=== PATIENT | female | born 1935 | race Caucasian/White ===

== ENCOUNTER 2018-11-15 07:33 | Observation (INO) | payer MEDICARE, OTHER ==
[~2018-11-15] VITALS: Ht 152.4 cm; Wt 70.1 kg
[2018-11-15] MEDS ORDERED: morphine 4 MG/ML VIAL IV STA (07:42)
[2018-11-15] MEDS ORDERED: ONDANSETRON 4 MG INJ IV STA (07:42)
[2018-11-15] MEDS ORDERED: SOD CHLORIDE 0.9% 1,000 ML IV STA (07:42)
--- NOTE | 2018-11-15 07:53 | ERD ---
ER Documentation Chief Complaint Chief Complaint HEADACHE NON TRAUMATIC L SIDE, NO NEURO DEF. NAUSEA NO VOMITING. HPI This is a very pleasant 83-year-old female with past medical history of hypertension. The patient for the past 24 hours has complained of a unilateral pulsating left-sided headache. There is been no blunt or penetrating head trauma. She states this is not the worst headache of her life. She denies any neck pain. She said no fevers no shaking no chills. She is felt nauseous but has not experienced any emesis. She took her blood pressure this morning and it was elevated with a systolic of greater than 190. She denies any chest pain or pressure. She has no shortness of breath at rest or exertion. She states she felt her vision was slightly blurry upon awakening this morning roughly an hour prior to arrival but indicated this has resolved. She has a vamp presser who helps her to attend her activities of daily living. He indicated that he brought her to the emergency department she started to complain of dizziness just prior to arrival. The patient stated she felt as though the room was spinning. This was worse when she went to ambulate therefore she lied supine to improve her symptoms. Her caregiver states however that the patient felt as though she was going to pass out every time she stood up and therefore he brought her to the emergency department to be further evaluated as she is been unable to ambulate for several hours due to her symptoms. ROS All systems reviewed and are negative except as per history of present illness. Medications Home Meds Reported Medications Evolocumab (Repatha Syringe) 140 Mg/1 Ml Syringe, 140 MG SQ Q14D 11/15/18 Icosapent Ethyl (VASCEPA) 1 Gm Capsule, 1 GM PO QID, CAP 11/15/18 Amlodipine Besylate* (Amlodipine Besylate*) 10 Mg Tablet, 10 MG PO DAILY, #30 TAB 11/15/18 Memantine* (Namenda* XR) 28 Mg Cap.spr.24, 28 MG PO DAILY, #30 TAB 11/15/18 Dexlansoprazole (Dexilant) 60 Mg Cap.drSabihamp, 60 MG PO DAILY, #30 CAP 11/15/18 Rosuvastatin Calcium* (Crestor*) 10 Mg Tablet, 10 MG PO QHS, #30 TAB 11/15/18 Ezetimibe* (Zetia*) 10 Mg Tablet, 10 MG PO DAILY, TAB 6/25/19 Metoprolol Tartrate* (Lopressor*) 25 Mg Tab, 25 MG PO BID, #60 TAB 11/15/18 Salmeterol Xinaf-Fluticasone* (Advair*) 500/50 Diskus Inhaler, 1 INH INHALATION BID, #1 INHALER 11/15/18 Gabapentin* (Gabapentin*) 600 Mg Tablet, 600 MG PO DAILY, #60 TAB 11/15/18 Metformin Hcl* (Metformin Hcl*) 1,000 Mg Tablet, 1000 MG PO NEEDED, #30 TAB 11/15/18 Meclizine Hcl* (Antivert*) 12.5 Mg Tab, 12.5 MG PO Q8H, #30 TAB 11/15/18 Montelukast Sodium* (Montelukast Sodium*) 10 Mg Tablet, 10 MG PO QHS, #30 TAB 11/15/18 Clonidine Hcl* (Clonidine Hcl*) 0.1 Mg Tab, 0.1 MG PO Q8H PRN for HTN, TAB 11/15/18 Allergies Allergies: Coded Allergies: No Known Allergy (Verified , 11/15/18) PMhx/Soc History of Surgery: Yes (EYE SURGERY) Anesthesia Reaction: No Hx Neurological Disorder: No Hx Respiratory Disorders: No Hx Cardiac Disorders: Yes (HTN) Hx Psychiatric Problems: No Hx Miscellaneous Medical Probl: No Hx Alcohol Use: No Hx Substance Use: No Hx Tobacco Use: No Physical Exam Vitals Vital Signs Date Temp Pulse Resp B/P (MAP) Pulse Ox O2 O2 Flow FiO2 Time Delivery Rate 11/15/18 62 22 177/59 92 Room Air 10:12 (98) 11/15/18 61 18 171/44 97 Room Air 08:01 (86) 11/15/18 98.0 72 18 190/79 98 07:40 (116) Physical Exam Constitutional:Well-developed. Well-nourished. HEENT:Normocephalic. Atraumatic. Corneal clouding of the left pupil. Right pupil was reactive to light and 2 mm. Moist mucous membranes. Funduscopy exam shows sharp optic disks and venous pulsations were present Neck: No nuchal rigidity. No lymphadenopathy. No posterior cervical spine tenderness or step-offs. Respiratory: Not using accessory muscles of respiration.Lungs were clear to auscultation bilaterally. No rhonchi. No rales. No wheezing. Cardiovascular: Regular rate regular rhythm.No murmurs. No rubs were appreciated.S1, S2 normal. Distal pulses are palpable 2+ bilaterally. GI: Abdomen was soft. Nontender. Non Distended. No pulsatile abdominal masses or bruits. No rebound. No guarding. Bowel sounds were present and normal. Muscle skeletal: Full range of motion of both the upper and lower extremities bilaterally.Normal muscle tone.No assymetrical calf tenderness or swelling. Skin: No petechia, no purpura. No lesions on the palms or the soles of the feet. No maculopapular rash. NEURO: Patient was alert, awake, orientated x3.No facial droop. Gait not observed as patient felt too weak to ambulate.Speech had regular rate and rhythm. No focal neurological deficits. Peripheral fatigable nystagmus to the right sided gaze Result Diagram: 11/15/18 0800 11/15/18 0800 Results 24 hrs Laboratory Tests Test 11/15/18 08:00 White Blood Count 12.7 10^3/ul Red Blood Count 4.95 10^6/ul Hemoglobin 12.3 g/dl Hematocrit 39.9 % Mean Corpuscular Volume 80.6 fl Mean Corpuscular Hemoglobin 24.8 pg Mean Corpuscular Hemoglobin Concent 30.8 g/dl Red Cell Distribution Width 14.6 % Platelet Count 360 10^3/UL Mean Platelet Volume 10.4 fl Immature Granulocytes % 0.700 % Neutrophils % 76.4 % Lymphocytes % 15.7 % Monocytes % 5.4 % Eosinophils % 1.1 % Basophils % 0.7 % Nucleated Red Blood Cells % 0.0 /100WBC Immature Granulocytes # 0.090 10^3/ul Neutrophils # 9.7 10^3/ul Lymphocytes # 2.0 10^3/ul Monocytes # 0.7 10^3/ul Eosinophils # 0.1 10^3/ul Basophils # 0.1 10^3/ul Nucleated Red Blood Cells # 0.0 10^3/ul Prothrombin Time 13.9 Sec Prothrombin Time Ratio 1.1 INR International Normalized Ratio 1.06 Activated Partial Thromboplast Time 29.2 Sec Sodium Level 142 mmol/L Potassium Level 4.6 mmol/L Chloride Level 102 mmol/L Carbon Dioxide Level 27 mmol/L Anion Gap 13 Blood Urea Nitrogen 15 mg/dl Creatinine 0.85 mg/dl Est Glomerular Filtrat Rate mL/min mL/min Glucose Level 167 mg/dl Calcium Level 9.2 mg/dl Total Bilirubin 0.8 mg/dl Direct Bilirubin 0.00 mg/dl Indirect Bilirubin 0.8 mg/dl Aspartate Amino Transf (AST/SGOT) 19 IU/L Alanine Aminotransferase (ALT/SGPT) 18 IU/L Alkaline Phosphatase 115 IU/L Troponin I < 0.012 ng/ml B-Type Natriuretic Peptide 847 PG/ML Total Protein 7.2 g/dl Albumin 4.1 g/dl Globulin 3.10 g/dl Albumin/Globulin Ratio 1.32 Lipase 55 U/L Current Medications Medications Dose Sig/Tremaine Start Time Status Last (Trade) Ordered Route PRN Stop Time Admin Dose Reason Admin Sodium 1,000 ml @ Q1H STAT 11/15/18 DC 11/15/18 Chloride 1,000 mls/hr IV 07:42 08:00 11/15/18 08:41 Ondansetron 4 mg ONCE STAT 11/15/18 DC 11/15/18 HCl (Zofran IV 07:42 08:00 Inj) 11/15/18 07:45 Morphine 4 mg ONCE STAT 11/15/18 DC 11/15/18 Sulfate IV 07:42 08:00 (morphine) 11/15/18 07:45 Meclizine 25 mg ONCE ONCE 11/15/18 DC 11/15/18 HCl PO 08:00 08:11 (Antivert) 11/15/18 08:01 Diazepam 2.5 mg ONCE ONCE 11/15/18 DC 11/15/18 (Valium) IV 10:30 10:18 11/15/18 10:31 Clonidine 0.1 mg ONCE ONCE 11/15/18 DC (Catapres) PO 11:30 11/15/18 11:31 IV Flush 3 ml PER 11/15/18 UNV (NS 3 ml) PROTOCOL IV 12:30 Enoxaparin 40 mg DAILY SC 11/16/18 UNV Sodium 09:00 (Lovenox) Ondansetron 4 mg Q4H PRN 11/15/18 UNV HCl (Zofran IV NAUSEA 12:30 Inj) AND/OR VOMITING Ondansetron 4 mg ER BRIDGE 11/15/18 HCl (Zofran PRN IV 12:30 Inj) NAUSEA/VOMITI 11/16/18 12:29 NG 650 mg ER BRIDGE 11/15/18 Acetaminophen PRN PO 12:30 (Tylenol .MILD PAIN 11/16/18 12:29 Tab) 1-3 OR TEMP Procedures/MDM The patient presented to the emergency department with an acute single headache that presented within hours of onset my differential diagnosis included but was not limited to meningitis, SAH, intracerebral hemorrhage, hypertensive encephalopathy, cranial artery dissection, cerebral venous sinus thrombosis, traumatic, acute sinusitis. The patient has no ocular symptoms to suggest temporal neuritis, acute narrow-angle glaucoma or pituitary apoplexy. The patient did not appear to have a toxic or metabolic etiology such as fever, hypoglycemia, high-altitude disease or carbon monoxide poisoning. This was not the patients worse headache of their life. The patient had a comp lete neurologic and fundoscopic exam performed by myself that was normal with no focal neurological deficits or retinal hemorrhage. The patient stated this headache was not severe or distinct from other headaches and the history with the physical exam findings did not likely suggest SAH. Therefore, I did not feel it was clinically necessary to perform a lumbar puncture and CSF analysis. A CT scan ordered by myself and reviewed by the radiologist indicate the followin. The intracranial contents are without significant interval change compared to the patient's prior CT scan from January 01, 2012. 2. Focal left periventricular calcific density without significant interval change compared to the patient's prior study from 2011. This may represent dystrophic calcification versus small vascular malformation such as a developmental venous anomaly. Further evaluation with MRI imaging with contrast would be more sensitive. 3. [id number] diffuse atrophy. 4. Microangiopathic ischemic changes. 5. Vascular calcifications. 6. Left-sided phthisis bulbi. 7. Mild mucosal thickening ethmoid air cells. I obtained a 12-lead EKG tracing to rule out for atypical myocardial infarction: 12 Lead EKG tracing ordered and reviewed by myself showed: Normal sinus rhythm of 62 bpm and no arrhythmia. IL interval normal. QRS duration normal. No ST segment elevation No ST segment depression. No changes consistent with acute ischemia. I Obtained a chest radiograph and there is no evidence of pneumonia and my reason for obtaining the chest radiograph is nursing staff approached me and indicated that the patient was hypoxic on room air. She did not appear to be in any respiratory distress. She had no risk factors for pulmonary embolism. The patient required supplemental oxygen with 2 L nasal cannula. The patient received Zofran and Antivert and Valium without any improvement of her vertigo. Given that her symptoms persisted and she was unable to ambulate I did feel she required admission for observation. She will go to the telemetry service. Patient will be placed in the telemetry service that she presented to the emergency department with hypertension. Patient had no signs of endorgan damage to suggest hypertensive emergency. She did receive clonidine in the [facility] department which improved her blood pressure. Departure Diagnosis: Primary Impression: Near syncope Additional Impressions: Vertigo Accelerated hypertension Condition: Serious DARYL NEFF MD Nov 15, 2018 07:53
[2018-11-15] MEDS ORDERED: MECLIZINE 12.5 MG TAB PO ONE (08:00)
[2018-11-15] MEDS ORDERED: DIAZEPAM 5 MG/ML SYG IV ONE (10:30)
[2018-11-15] MEDS ORDERED: CLON-379 PO (10:57)
[2018-11-15] MEDS ORDERED: MONT10TA24 PO (10:58)
[2018-11-15] MEDS ORDERED: MECL12.574 PO (10:58)
[2018-11-15] MEDS ORDERED: METF100010 PO (10:59)
[2018-11-15] MEDS ORDERED: ADV50050 INHALATION (10:59)
[2018-11-15] MEDS ORDERED: GABA-526 PO (10:59)
[2018-11-15] MEDS ORDERED: EZET10TA31 PO (11:00)
[2018-11-15] MEDS ORDERED: METO-448 PO (11:00)
[2018-11-15] MEDS ORDERED: RSV10T PO (11:00)
[2018-11-15] MEDS ORDERED: MEMA28CA PO (11:01)
[2018-11-15] MEDS ORDERED: DEXL60CA2 PO (11:01)
[2018-11-15] MEDS ORDERED: AMLO-147 PO (11:02)
[2018-11-15] MEDS ORDERED: ICOS1CAP PO (11:03)
[2018-11-15] MEDS ORDERED: EVOL140S SQ (11:04)
--- NOTE | 2018-11-15 12:06 | HP ---
Date/Time of Note Date/Time of Note DATE: 11/15/18 TIME: 12:06 Assessment/Plan VTE Prophylaxis Pharmacological prophylaxis: LMWH Lines/Catheters IV C[facility] Type [facility]from [facility]): Saline Lock Assessment/Plan Hospital Course 83-year-old female with comorbidities including hypertension, diabetes mellitus, and dyslipidemia who came to the emergency room with complaint of left-sided headache and vertigo who will be admitted to inpatient setting for further treatment and evaluation. 1. Vertigo. Etiology unclear. Brain CT scan negative for any acute stroke. Obtain brain MRI. Telemetry monitoring. 2D echocardiogram to evaluate the left ventricular ejection fraction. Trial of meclizine. PT evaluation. 2. Hypertension. Resume antihypertensives. 3. Dyslipidemia. Resume antilipemics. Obtain fasting lipid panel. 4. Diabetes mellitus type 2. Obtain hemoglobin A1c to evaluate the blood glucose control over the past 3 months. Start the patient on sliding scale insulin along with basal insulin. 5. Leukocytosis. Most probably reactive in nature. The patient remains afebrile. Monitor. Plan: The patient will be admitted to inpatient telemetry floor. The patient will be started on a carbohydrate controlled diet. The patient will be started on DVT prophylaxis. The patient will remain a full code. Activities will be as tolerated with assist. The rest of the patient's management will be based on the clinical course and the results of diagnostic studies. Based on the patient's clinical presentation, she most probably requires at least 1 midnight's stay for further management and evaluation of her clinical presentation. The patient was seen in collaboration with Dr. Larkin. Result Diagram: 11/15/18 0800 11/15/18 0800 Results 24hrs Laboratory Tests Test 11/15/18 08:00 White Blood Count 12.7 H Red Blood Count 4.95 Hemoglobin 12.3 Hematocrit 39.9 Mean Corpuscular Volume 80.6 L Mean Corpuscular Hemoglobin 24.8 L Mean Corpuscular Hemoglobin Concent 30.8 L Red Cell Distribution Width 14.6 H Platelet Count 360 Mean Platelet Volume 10.4 Immature Granulocytes % 0.700 H Neutrophils % 76.4 Lymphocytes % 15.7 Monocytes % 5.4 Eosinophils % 1.1 Basophils % 0.7 Nucleated Red Blood Cells % 0.0 Immature Granulocytes # 0.090 H Neutrophils # 9.7 H Lymphocytes # 2.0 Monocytes # 0.7 Eosinophils # 0.1 Basophils # 0.1 Nucleated Red Blood Cells # 0.0 Prothrombin Time 13.9 Prothrombin Time Ratio 1.1 INR International Normalized Ratio 1.06 Activated Partial Thromboplast Time 29.2 Sodium Level 142 Potassium Level 4.6 Chloride Level 102 Carbon Dioxide Level 27 Anion Gap 13 Blood Urea Nitrogen 15 Creatinine 0.85 Est Glomerular Filtrat Rate mL/min Glucose Level 167 Calcium Level 9.2 Total Bilirubin 0.8 Direct Bilirubin 0.00 Indirect Bilirubin 0.8 Aspartate Amino Transf (AST/SGOT) 19 Alanine Aminotransferase (ALT/SGPT) 18 Alkaline Phosphatase 115 Troponin I < 0.012 B-Type Natriuretic Peptide 847 H Total Protein 7.2 Albumin 4.1 Globulin 3.10 Albumin/Globulin Ratio 1.32 Lipase 55 HPI/ROS Admit Date/Time Admit Date/Time Hx of Present Illness Reason for admission: Headache, vertigo. This is a 83-year-old female with a past medical history of hypertension, diabetes mellitus, dyslipidemia, and left-sided blindness who came to the emergency room with multiple complaints. The patient was complaining of left frontal headache. The patient denied any trauma. She denied any neck pain. She denied any fevers or chills. The patient was also complaining of nausea, but no emesis. The patient was also complaining of spinning sensation of the room. The patient verbalized that the spinning sensation was worse when ambulating. The patient denied any chest pain. In the emergency room, the patient's brain CT scan was negative for any acute findings. Her blood pressure was noticed to be elevated (190/79). She was treated with diazepam 2.5 mg IV push along with clonidine, Zofran, and meclizine. ROS Constitutional: nausea Eyes: no complaints ENT: no complaints Respiratory: no complaints Cardiovascular: no complaints Gastrointestinal: nausea Genitourinary: no complaints Musculoskeletal: no complaints Skin: no complaints Neurologic: dizziness Endocrine: no complaints Lymphatic: no complaints Psychological: no complaints Immunologic: no complaints PMH/Family/Social Past Medical History 1. Hypertension. 2. Diabetes mellitus. 3. Dyslipidemia. 4. Left eye blindness. Coded Allergies: No Known Allergy (Verified , 11/15/18) Past Surgical History Past Surgical Hx: no surgical history Social History The patient lives at home. Alcohol Use: none Smoking Status: Never smoker Drug Use: none Exam/Review of Systems Vital Signs Vitals Vital Signs Date Temp Pulse Resp B/P (MAP) Pulse Ox O2 O2 Flow FiO2 Time Delivery Rate 11/15/18 62 22 177/59 92 Room Air 10:12 (98) 11/15/18 98.0 07:40 Exam Exam General: Adequately build 83 year-old female lying in bed in no apparent distress. HEENT: Normocephalic, atraumatic. Eyes: Anicteric sclerae, conjunctivae clear. Left eye mechanical device. ENT: Nasal septum midline, oral mucosa moist. Neck supple, no JVD noticed. Respiratory: Bilaterally clear breath sounds. No use of accessory muscles of respiration. No adventitious breath sounds. Cardiovascular: S1, S2 heard. Grade 2/6 GAYLE. Abdomen: Soft, nontender, and nondistended. Bowel sounds positive in all 4 quadrants. Genitourinary: Deferred. Extremities: No cyanosis, no clubbing, no edema. Peripheral pulses palpable. Neurologic: The patient is awake, alert, and oriented. Skin: Normal skin turgor. No skin rashes. Additional Comments Brain CT IMPRESSION: 1. The intracranial contents are without significant interval change compared to the patient's prior CT scan from January 01, 2012. 2. Focal left periventricular calcific density without significant interval change compared to the patient's prior study from 2011. This may represent dystrophic calcification versus small vascular malformation such as a developmental venous anomaly. Further evaluation with MRI imaging with contrast would be more sensitive. 3. [id number] diffuse atrophy. 4. Microangiopathic ischemic changes. 5. Vascular calcifications. 6. Left-sided phthisis bulbi. 7. Mild mucosal thickening ethmoid air cells. LINDA CAGLE NP Nov 15, 2018 12:06
[2018-11-15] MEDS ORDERED: ACETAMINOPHEN 325 MG TAB PO PRN (12:30)
[2018-11-15] MEDS ORDERED: ONDANSETRON 4 MG INJ IV PRN ×2 (12:30)
[2018-11-15] MEDS ORDERED: NACL 0.9% 3 ML SYG IV SCH (12:30)
[2018-11-15] MEDS ORDERED: GLUCOSE GEL 15 GRAM TUBE PO PRN ×2 (13:30)
[2018-11-15] MEDS ORDERED: DEXTROSE 50% 50 ML SYRINGE IV PRN ×2 (13:30)
[2018-11-15] MEDS ORDERED: GLUCOSE GEL 15 GRAM TUBE BUCCAL PRN (13:30)
[2018-11-15] MEDS ORDERED: GLUCAGON 1 MG INJ IM PRN (13:30)
[2018-11-15] MEDS: INSULIN ASPART [NOVOLOG] 3 ML PEN SC SCH ×2 (18:00→22:49)
[2018-11-15] MEDS ORDERED: INSULIN GLARGINE [LANTus] (100 UNITS/ML) SYG SC SCH (20:00)
[2018-11-15] MEDS: MECLIZINE 12.5 MG TAB PO SCH ×4 (20:50→22:55)
[2018-11-15] MEDS ORDERED: MONTELUKAST 10 MG TAB PO SCH (21:00)
[2018-11-15 21:01] VITALS: PULSE 60
[2018-11-15 21:23] VITALS: BP 150/64; PULSE 62; RESP 20
[2018-11-15 22:36] VITALS: Ht 152.4 cm; Wt 70.1 kg
[2018-11-15] MEDS: METOPROLOL 25 MG TAB PO SCH (22:42)
[2018-11-16] VITALS (8 sets, daily range): BP systolic 151–158; BP diastolic 67–70; PULSE 53–66; RESP 18
[2018-11-16] MEDS: MECLIZINE 12.5 MG TAB PO SCH ×2 (06:28→13:07)
[2018-11-16] MEDS: INSULIN ASPART [NOVOLOG] 3 ML PEN SC SCH ×2 (07:50→11:50)
[2018-11-16] MEDS ORDERED: ENOXAPARIN 40 MG/0.4 ML SYG SC SCH (09:00)
[2018-11-16] MEDS ORDERED: AMLODIPINE 10 MG TAB PO SCH (09:00)
[2018-11-16] MEDS ORDERED: EZETIMIBE 10 MG TAB PO SCH (09:00)
[2018-11-16] MEDS ORDERED: GABAPENTIN 300 MG CAP PO SCH (09:00)
[2018-11-16] MEDS: METOPROLOL 25 MG TAB PO SCH (09:24)
--- NOTE | 2018-11-16 14:21 | PDOCDIS ---
Discharge Instructions CONDITION [id number] Patient Condition: [id number] Stable FOLLOW UP/APPOINTMENTS Follow-up Plan Follow-up with your primary care physician in 1 week. OTHER ORDERS: Other Orders: 1. Resume home medications. 2. Resume activities as tolerated. 3. Follow-up with your primary care physician in 1 week. 4. Follow a low-cholesterol, low carbohydrate diet. 5. Please go to the nearest emergency room if you have any focal weakness, sudden onset of speech disturbances, or any other unusual signs/symptoms. LINDA CAGLE NP Nov 16, 2018 14:21
--- NOTE | 2018-11-16 14:28 | DS ---
Date/Time of Note Date/Time of Note DATE: 11/16/18 TIME: 14:24 Discharge Summary Admission/Discharge Info Admit Date/Time Nov 15, 2018 at 12:09 Discharge Date/Time Discharge Diagnosis 1. Vertigo. 2. Hypertension. 3. Dyslipidemia. 4. Diabetes mellitus type 2. Hemoglobin A1C 6.3. 5. COPD. 6. Chronic left eye blindness. Patient Condition: Stable Procedures Brain MRI IMPRESSION: 1. No evidence of acute intracranial pathology. 2. Mild to moderate diffuse volume loss with moderate microvascular ischemic disease in the periventricular and deep white matter. 3. Small, 4 mm, hypointense lesion in the left frontal deep white matter with considerable susceptibility artifact and an associated prominent vessel. 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 While better appreciated on the current study, this is likely unchanged. Brain CT IMPRESSION: 1. The intracranial contents are without significant interval change compared to the patient's prior CT scan from January 01, 2012. 2. Focal left periventricular calcific density without significant interval change compared to the patient's prior study from 2011. This may represent dy strophic calcification versus small vascular malformation such as a developmental venous anomaly. Further evaluation with MRI imaging with contrast would be more sensitive. 3. Cdhi-id-aoyhqyij diffuse atrophy. 4. Microangiopathic ischemic changes. 5. Vascular calcifications. 6. Left-sided phthisis bulbi. 7. Mild mucosal thickening ethmoid air cells. Hx of Present Illness Reason for admission: Headache, vertigo. This is a 83-year-old female with a past medical history of hypertension, diabetes mellitus, dyslipidemia, and left-sided blindness who came to the emergency room with multiple complaints. The patient was complaining of left frontal headache. The patient denied any trauma. She denied any neck pain. She denied any fevers or chills. The patient was also complaining of nausea, but no emesis. The patient was also complaining of spinning sensation of the room. The patient verbalized that the spinning sensation was worse when ambulating. The patient denied any chest pain. In the emergency room, the patient's brain CT scan was negative for any acute findings. Her blood pressure was noticed to be elevated (190/79). She was treated with diazepam 2.5 mg IV push along with clonidine, Zofran, and meclizine. Hospital Course The patient was admitted to inpatient setting. Etiology of the patient's clinical presentation was extensively evaluated. The patient's brain CT scan was negative for any acute findings. The patient's brain MRI was also negative for any acute findings. The patient was maintained on meclizine with improved symptoms. The patient was evaluated by physical therapy and physical therapy recommended home health with home physical therapy for home safety and home physical therapy evaluation. The patient's symptomatology has largely resolved. Therefore, the patient will be discharged home, to be followed up with outpatie nt physical therapy. The patient lives in a [facility] with 24-hour supervision and has a daily caregiver The patient's chronic problems include hypertension. The patient was maintained on antihypertensives. The patient was maintained on antilipemics for her underlying dyslipidemia. The patient's fasting lipid panel was not satisfactory. The patient has underlying diabetes mellitus type 2. The patient was maintained on sliding scale insulin with basal insulin. However, the patient refused to take insulin during the hospital course. The patient's hemoglobin A1c was found to be 6.3. The patient will be resumed on metformin. The patient had minimal leukocytosis on the day of admission. However, this resolved on the next day. The patient did not have any evidence of any infectious process. The patient has a history of COPD. The patient was maintained on leukotriene inhibitors. The patient did not have any evidence of any exacerbation of underlying COPD. Discharge Instructions 1. Resume home medications. 2. Resume activities as tolerated. 3. Follow-up with your primary care physician in 1 week. 4. Follow a low-cholesterol, low carbohydrate diet. 5. Please go to the nearest emergency room if you have any focal weakness, sudden onset of speech disturbances, or any other unusual signs/symptoms. The patient's caregiver Stu verbalized understanding of the discharge instructions. The patient was seen in collaboration with Dr. Larkin. Home Meds Reported Medications Evolocumab (Repatha Syringe) 140 Mg/1 Ml Syringe, 140 MG SQ Q14D 11/15/18 Icosapent Ethyl (VASCEPA) 1 Gm Capsule, 1 GM PO QID, CAP 11/15/18 Amlodipine Besylate* (Amlodipine Besylate*) 10 Mg Tablet, 10 MG PO DAILY, #30 TAB 11/15/18 Memantine* (Namenda* XR) 28 Mg Cap.spr.24, 28 MG PO DAILY, #30 TAB 11/15/18 Dexlansoprazole (Dexilant) 60 Mg Sacha., 60 MG PO DAILY, #30 CAP 11/15/18 Rosuvastatin Calcium* (Crestor*) 10 Mg Tablet, 10 MG PO QHS, #30 TAB 11/15/18 Ezetimibe* (Zetia*) 10 Mg Tablet, 10 MG PO DAILY, TAB 11/15/18 Metoprolol Tartrate* (Lopressor*) 25 Mg Tab, 25 MG PO BID, #60 TAB 11/15/18 Salmeterol Xinaf-Fluticasone* (Advair*) 500/50 Diskus Inhaler, 1 INH INHALATION BID, #1 INHALER 11/15/18 Gabapentin* (Gabapentin*) 600 Mg Tablet, 600 MG PO DAILY, #60 TAB 11/15/18 Metformin Hcl* (Metformin Hcl*) 1,000 Mg Tablet, 1000 MG PO NEEDED, #30 TAB 11/15/18 Meclizine Hcl* (Antivert*) 12.5 Mg Tab, 12.5 MG PO Q8H, #30 TAB 11/15/18 Montelukast Sodium* (Montelukast Sodium*) 10 Mg Tablet, 10 MG PO QHS, #30 TAB 11/15/18 Clonidine Hcl* (Clonidine Hcl*) 0.1 Mg Tab, 0.1 MG PO Q8H PRN for HTN, TAB 11/15/18 Follow-up Plan Follow-up with your primary care physician in 1 week. Primary Care Provider Not On Staff Doctor Time spent on discharge: > 30 minutes Pending Labs Laboratory Tests Test 11/15/18 22:45 11/15/18 23:07 11/16/18 06:07 11/16/18 07:48 Bedside 154 131 Glucose mg/dL (70-220) mg/dL (70-220) Urine Color YELLOW (YELLOW ) Urine Clarity CLOUDY (CLEAR) Urine pH 5.0 (5.0-9.0) Urine Specific 1.012 (1.003-1 Majestic .030) Urine Ketones NEGATIVE mg/dL (NEGATIV E) Urine Nitrite POSITIVE mg/dL (NEGATIV E) Urine NEGATIVE Bilirubin mg/dL (NEGATIV E) Urine NEGATIVE Urobilinogen mg/dL (NEGATIV E) Urine Leukocyte 3+ Esterase Erich/ul (NEGATI VE) Urine 4 /HPF (0-5) Microscopic RBC Urine 71 /HPF (0-5) Microscopic WBC Urine Squamous FEW /HPF (FEW) Epithelial Cell s Urine Bacteria FEW /HPF (NONE SEEN) Urine NEGATIVE Hemoglobin mg/dL (NEGATIV E) Urine Glucose NEGATIVE mg/dL (NEGATIV E) Urine Total NEGATIVE Protein mg/dl (NEGATIV E) Urine Opiates Positive (NEGA Screen TIVE) Urine Negative (NEGA Barbiturates TIVE) Urine Negative (NEGA Amphetamines TIVE) Screen Urine Negative (NEGA Benzodiazepines TIVE) Screen Urine Cocaine Negative (NEGA Screen TIVE) Urine Negative (NEGA Cannabinoids TIVE) White Blood 10.4 Count 10^3/ul (4.8-1 0.8) Red Blood 4.79 Count 10^6/ul (4.20- 5.40) Hemoglobin 11.9 g/dl (12.0-16. 0) Hematocrit 38.1 % (37.0-47.0) Mean 79.5 Corpuscular fl (82.0-101.0 Volume ) Mean 24.8 Corpuscular pg (29.0-33.0) Hemoglobin Mean 31.2 Corpuscular g/dl (32.0-37. Hemoglobin Conc 0) ent Red Cell 15.0 Distribution % (11.5-14.5) Width Platelet Count 381 10^3/UL (140-4 15) Mean Platelet 10.5 Volume fl (7.4-10.4) Immature 0.700 Granulocytes % % (0.001-0.429 ) Neutrophils % 58.6 % (39.0-77.0) Lymphocytes % 26.4 % (15.0-51.0) Monocytes % 8.5 % (0.0-11.0) Eosinophils % 5.0 % (0.0-7.0) Basophils % 0.8 % (0.0-2.0) Nucleated Red 0.0 Blood Cells % /100WBC (0.0-0 .0) Immature 0.070 Granulocytes # 10^3/ul (0.0-0 .031) Neutrophils # 6.1 10^3/ul (1.6-7 .5) Lymphocytes # 2.8 10^3/ul (0.8-2 .9) Monocytes # 0.9 10^3/ul (0.3-0 .9) Eosinophils # 0.5 10^3/ul (0.0-0 .5) Basophils # 0.1 10^3/ul (0.0-0 .1) Nucleated Red 0.0 Blood Cells # 10^3/ul (0.0-0 .0) Sodium Level 145 mmol/L (135-14 4) Potassium 4.6 Level mmol/L (3.5-5. 1) Chloride Level 105 mmol/L (97-110 ) Carbon Dioxide 31 Level mmol/L (21-31) Anion Gap 9 (5-13) Blood Urea 16 Nitrogen mg/dl (7-20) Creatinine 0.90 mg/dl (0.44-1. 00) Est Glomerular mL/min (>60) Filtrat Rate mL/min Glucose Level 131 mg/dl (70-220) Calcium Level 9.1 mg/dl (8.4-10. 2) Phosphorus 4.3 Level mg/dl (2.5-4.9 ) Magnesium 2.1 Level mg/dl (1.7-2.5 ) Total 0.6 Bilirubin mg/dl (0.2-1.3 ) Direct 0.00 Bilirubin mg/dl (0.00-0. 20) Indirect 0.6 Bilirubin mg/dl (0-1.1) Aspartate Amino 14 Transf (AST/SGO IU/L (15-46) T) Alanine 20 Aminotransferas IU/L (13-69) e (ALT/SGPT) Alkaline 87 Phosphatase IU/L (42-121) Creatine 45 Kinase IU/L (23-200) Creatine Kinase 1.5 Index Creatinine 0.67 Kinase MB ng/ml (0.0-2.4 (Mass) ) Troponin I 0.017 ng/ml (0.000-0 .120) Total Protein 6.0 g/dl (6.1-8.1) Albumin 3.5 g/dl (3.3-4.9) Globulin 2.50 g/dl (1.3-3.2) Albumin/Globuli 1.40 n Ratio Triglycerides 244 Level mg/dl (0-149) Cholesterol 233 Level mg/dl (100-200 ) LDL 150 mg/dl Cholesterol, Calculated HDL 34 Cholesterol mg/dl (33-92) Cholesterol/HDL 6.8 RATIO Ratio Test 11/16/18 12:10 Bedside 121 Glucose mg/dL (70-220) LINDA CAGLE NP Nov 16, 2018 14:28
--- NOTE | 2018-11-17 10:01 | RADRPT ---
Echocardiogram Report Patient Name: Herbie MARSHALLtient ID: [id number] : 1935 (83y 8m)Study Date: 11/16/2018 8:47:14 AM Gender: FAccession #: [id number] Tech: Mehnaz Dawson [facility] Location: 51 Ref.Physician: LINDA CAGLE Height(Cm): BSA: Weight(Kg): Quality: AdequateOrder Physician: LINDA CAGLE Account #: Procedures: Echocardiographic Report: Transthoracic echocardiogram with complete 2D, M-Mode, and doppler examination. Indications: Evaluate Left Ventricular function. Measurements: 2D/M Mode Doppler Measurement Value Normal Range Measurement Value Normal Range LVIDd 2D 3.6 [ 3.8 - 5.2 ] cm AV Peak Nestor 1.7 [ 100.0 - 170.0 ] cm/sec LVIDs 2D 2.5 [ 2.2 - 3.5 ] cm AV Peak PG 12.0 [ 2.0 - 9.0 ] mmHg LVPWd 2D 0.9 [ 0.6 - 0.9 ] cm LVOT Peak Nestor 0.9 [ 70.0 - 110.0 ] cm/sec IVSd 2D 1.8 [ 0.6 - 0.9 ] cm LVOT Peak PG 3.0 [ 2.0 - 6.0 ] mmHg AoR Diam 2D 2.9 [ 2.3 - 3.1 ] cm MV E Peak Nestor 0.6 [ 60.0 - 130.0 ] cm/sec EDV 2D 54.8 [ 46.0 - 106.0 ] ml MV A Peak Nestor 0.9 [ 100.0 - 120.0 ] cm/sec ESV 2D 21.2 [ 14.0 - 42.0 ] ml MV E/A 0.6 [ 0.8 - 1.5 ] ratio EF 2D 61.3 [ 54.0 - 74.0 ] percent MV Decel Time 292 [ 104 - 258 ] msec LA Dimen 2D 3.9 [ 2.7 - 3.8 ] cm Lat E` Nestor 0.1 [ 10.0 - 15.0 ] cm/sec Lateral E/E` 10.5 [ 1.0 - 2.0 ] ratio Med E` Nestor 0.1 cm/sec MV E/A 0.6 [ 0.8 - 1.5 ] ratio TR Peak Nestor 3.1 [ 100.0 - 280.0 ] cm/sec TR Peak PG 39.0 mmHg RVSP 49.0 [ 10.0 - 36.0 ] mmHg RA Pressure 10.0 mmHg Findings: Left Ventricle: Normal left ventricular systolic function. Normal left ventricular cavity size. Sigmoid septum. Ejection fraction is visually estimated at 60 %. Tissue Doppler/Mitral Doppler indices are consistent with impaired relaxation (Stage I diastolic dysfunction). Right Ventricle: Normal right ventricular size. Normal right ventricular systolic function. Left Atrium: The left atrium is normal in size. Right Atrium: The right atrium is normal in size. Atrial Septum: Bubble study was performed with and with out valsalva indicating no evidence of intra atrial shunt. Mitral Valve: Normal appearance of the mitral valve. Mild mitral annular calcification. Trace mitral regurgitation. Aortic Valve: No hemodynamically significant aortic stenosis by doppler. Aortic cusps appear mildly calcified. Mild aortic valve regurgitation. Tricuspid Valve: Normal appearance of the tricuspid valve. The estimated Peak RVSP is 49 mmHg. There is mild tricuspid regurgitation. Pulmonic Valve: Pulmonic valve not well visualized. There is trace pulmonic regurgitation. Pericardium: Normal pericardium with no significant pericardial effusion. Aorta: Normal aortic root. IVC: Normal size and normal respiratory collapse consistent with normal right atrial pressure. Conclusions: Normal left ventricular systolic function. Normal left ventricular cavity size. Sigmoid septum. Ejection fraction is visually estimated at 60 %. Tissue Doppler/Mitral Doppler indices are consistent with impaired relaxation (Stage I diastolic dysfunction). Bubble study was performed with and with out valsalva indicating no evidence of intra atrial shunt. No hemodynamically significant aortic stenosis by doppler. Aortic cusps appear mildly calcified. Mild aortic valve regurgitation. Normal appearance of the mitral valve. Mild mitral annular calcification. Trace mitral regurgitation. Normal appearance of the tricuspid valve. The estimated Peak RVSP is 49 mmHg. There is mild tricuspid regurgitation. Electronically Signed By: Yash Rivas 2018-11-17 10:00:52 PDT
== END 2018-11-16 15:43 | disposition home health service (06) ==
LOC: E/R 07:33 → TEL 12:09
PROVIDERS: ADMIT Internal Medicine; ATTEND Internal Medicine
DX: R42 Dizziness and giddiness (principal); I10 Essential (primary) hypertension; E78.5 Hyperlipidemia, unspecified; E11.9 Type 2 diabetes mellitus without complications; D72.829 Elevated white blood cell count, unspecified
CPT/HCPCS: 70450; 70551; 71045; 80053; 80061; 80307; 81001; 82550; 82553; 82962; 83036; 83690; 83735; 83880; 84100; 84484; 85025; 85610; 85730; 87086; 93005; 93306; 97161; G0378; J1650; J1815; J2270; J2405; J3360; J7030